=== PATIENT | male | born 1970 | race American Indian/Alaskan Native ===

== ENCOUNTER 2016-09-15 03:22 | Emergency (ER) | payer MEDICAID ==
[~2016-09-15] VITALS: Ht 193 cm; Wt 78.0 kg
[~2016-09-15 03:22] MED LIST: INSU100V8 SQ; LISI5TAB7 PO
[2016-09-15] MEDS ORDERED: KETOROLAC 30 MG/1 ML ONE (04:16)
[2016-09-15] MEDS ORDERED: ONDANSETRON ODT 4 MG ONE (04:16)
[2016-09-15] MEDS ORDERED: KETOROLAC 30 MG/1 ML IM ONE (04:30)
[2016-09-15] MEDS ORDERED: ONDANSETRON ODT 4 MG PO ONE (04:30)
[2016-09-15 04:58] LABS: PATH.CAST-FLAG NOT PRESENT; SPERM-FLAG NOT PRESENT; SRC-FLAG NOT PRESENT; XTAL-FLAG NOT PRESENT; YLC-FLAG NOT PRESENT
[2016-09-15 05:33] LABS: ASPARTATE AMINO TRANSFERASE 8 U/L (15-37); BLOOD UREA NITROGEN 8 mg/dL (7-18)
[2016-09-15 07:07] VITALS: BP 127/61
== END 2016-09-15 07:11 | disposition home or self-care (01) ==
LOC: ED 03:50
DX: N30.01 Acute cystitis with hematuria (principal); E10.65 Type 1 diabetes mellitus with hyperglycemia; Z91.14 Patient's other noncompliance with medication regimen; F10.20 Alcohol dependence, uncomplicated; I10 Essential (primary) hypertension
CPT/HCPCS: 36415; 74176; 80053; 81001; 83690; 85025; 96372; 99285; J1885; Q0162

== ENCOUNTER 2016-10-04 21:13 | Emergency (ER) | payer MEDICAID ==
[~2016-10-04] VITALS: Ht 182.9 cm; Wt 85.0 kg
[2016-10-04 22:09] LABS: PATH.CAST-FLAG NOT PRESENT; SPERM-FLAG NOT PRESENT; SRC-FLAG NOT PRESENT; XTAL-FLAG NOT PRESENT; YLC-FLAG NOT PRESENT
[2016-10-04 22:11] LABS: HEMATOCRIT 34.2 % (39.2-51.8); HEMOGLOBIN 11.2 g/dL (13.7-18.0); WHITE BLOOD COUNT 8.4 x10^3/uL (3.4-10)
[2016-10-04 22:24] LABS: ASPARTATE AMINO TRANSFERASE 11 U/L (15-37); BLOOD UREA NITROGEN 17 mg/dL (7-18)
[2016-10-04] MEDS ORDERED: CALCIUM CARBONATE 500 MG TABLET PO ONE (22:30)
[2016-10-04 23:01] VITALS: BP 132/74
== END 2016-10-04 23:20 | disposition home or self-care (01) ==
LOC: ED 21:28
DX: R31.29 Other microscopic hematuria (principal); E83.51 Hypocalcemia; E11.65 Type 2 diabetes mellitus with hyperglycemia; Z87.891 Personal history of nicotine dependence; Z59.0 Homelessness
CPT/HCPCS: 36415; 80053; 81001; 83690; 85025; 99284

== ENCOUNTER 2016-11-10 01:22 | Emergency (ER) | payer MEDICAID ==
[~2016-11-10] VITALS: Ht 193 cm; Wt 80.0 kg
[2016-11-10 01:31] VITALS: BP 145/81
== END 2016-11-10 03:43 | disposition home or self-care (01) ==
LOC: ED 02:55
DX: J02.8 Acute pharyngitis due to other specified organisms (principal); B34.9 Viral infection, unspecified; M79.671 Pain in right foot; E11.65 Type 2 diabetes mellitus with hyperglycemia; I10 Essential (primary) hypertension; F10.20 Alcohol dependence, uncomplicated
CPT/HCPCS: 71020; 99284

== ENCOUNTER 2018-06-04 00:30 | Emergency (ER) | payer MEDICAID ==
[~2018-06-04] VITALS: Ht 193 cm; Wt 80.0 kg
--- NOTE | 2018-06-04 00:42 | NUR ---
REVIEW PREVIOUS HX, PT HAS HX DIABETES, TO LOBBY FOR BLOOD SUGAR AND PT NOTES THAT HE HAS NOT BEEN TAKING INSULIN HE "RAN OUT", UNKNOWN WHEN
[2018-06-04 02:29] LABS: BASOPHILS # (AUTO) 0.05 x10^3/uL (0-0.1); BASOPHILS % (AUTO) 0 % (0-1); EOSINOPHILS # (AUTO) 0.13 x10^3/uL (0-0.4); EOSINOPHILS % (AUTO) 1 % (1-7); LYMPHOCYTES # (AUTO) 1.99 x10^3/uL (1-3.4); LYMPHOCYTES % (AUTO) 18 % (22-44); MD NO; MEAN CORPUSCULAR HEMOGLOBIN 26.4 pg (27.5-34.5); MEAN CORPUSCULAR HGB CONC 33.4 g/dL (33.2-36.2); MEAN CORPUSCULAR VOLUME 78.9 fL (81-97); MEAN PLATELET VOLUME 7.7 fL (7.4-10.4); MONOCYTES # (AUTO) 0.66 x10^3/uL (0.2-0.8); MONOCYTES % (AUTO) 6 % (2-9); NEUTROPHILS # (AUTO) 8.41 x10^3/uL (1.8-6.8); NEUTROPHILS % (AUTO) 75 % (42-75); PLATELET COUNT 294 x10^3/uL (130-400); RED BLOOD COUNT 5.33 x10^6/uL (4.38-5.82); RED CELL DISTRIBUTION WIDTH 17.5 % (9.4-14.8)
[2018-06-04 02:37] LABS: ANION GAP 4 mmol/L (5-15); CALCIUM 8.4 mg/dL (8.5-10.1); CHLORIDE 110 mmol/L (98-107); CREATININE 1.02 mg/dL (0.7-1.3)
[2018-06-04 02:42] VITALS: BP 148/86
--- NOTE | 2018-06-04 02:44 | NUR ---
FIRST CONTACT WITH PT. PT HERE STATING RLE PAIN FOR SEVERAL WEEKS. IN WHEELCHAIR LLE AMPUTATION. R FOOT AMPUTATION. HX OF MRSA, STUB APPEARS NORMAL, NO REDNESS OR DRAINAGE AT THIS TIME. ALSO STATES PAIN R CALF. PT'S AOX4. RESPS EVEN AND UNLABORED. BP/SPO2 MONITORS IN PLACE. CALL LIGHT WITHIN REACH.
--- NOTE | 2018-06-04 03:25 | NUR ---
PT GIVEN DC INSTRUCTIONS. PT'S AOX4. RESPS EVEN AND UNLABORED. PT WHEELED TO DC. NO ACUTE DISTRESS AT DC.
== END 2018-06-04 03:26 | disposition home or self-care (01) ==
LOC: ED 02:09
DX: M79.604 Pain in right leg (principal); E11.65 Type 2 diabetes mellitus with hyperglycemia; I10 Essential (primary) hypertension; F17.200 Nicotine dependence, unspecified, uncomplicated; Z72.9 Problem related to lifestyle, unspecified; Z75.9 Unspecified problem related to medical facilities and other health care; Z63.8 Other specified problems related to primary support group
CPT/HCPCS: 36415; 80048; 82040; 82962; 85025; 99284

== ENCOUNTER 2018-07-18 19:38 | Emergency (ER) | payer MEDICAID ==
[~2018-07-18] VITALS: Ht 193 cm; Wt 80.5 kg
[2018-07-18 20:33] LABS: BASOPHILS # (AUTO) 0.05 x10^3/uL (0-0.1); BASOPHILS % (AUTO) 1 % (0-1); EOSINOPHILS # (AUTO) 0.25 x10^3/uL (0-0.4); EOSINOPHILS % (AUTO) 3 % (1-7); LYMPHOCYTES # (AUTO) 1.66 x10^3/uL (1-3.4); LYMPHOCYTES % (AUTO) 19 % (22-44); MD NO; MEAN CORPUSCULAR HEMOGLOBIN 26.5 pg (27.5-34.5); MEAN CORPUSCULAR HGB CONC 32.6 g/dL (33.2-36.2); MEAN CORPUSCULAR VOLUME 81.3 fL (81-97); MEAN PLATELET VOLUME 8.1 fL (7.4-10.4); MONOCYTES # (AUTO) 0.61 x10^3/uL (0.2-0.8); MONOCYTES % (AUTO) 7 % (2-9); NEUTROPHILS # (AUTO) 6.31 x10^3/uL (1.8-6.8); NEUTROPHILS % (AUTO) 71 % (42-75); PLATELET COUNT 370 x10^3/uL (130-400); RED BLOOD COUNT 4.99 x10^6/uL (4.38-5.82); RED CELL DISTRIBUTION WIDTH 16.6 % (9.4-14.8)
[2018-07-18] MEDS ORDERED: FLUCONAZOLE 100 MG TABLET ONE (20:38)
--- NOTE | 2018-07-18 20:44 | NUR ---
PT MEDICATED PER APR FOR YEAST INFECTION OF SCROTUM. PT RESTING IN ROOM, NADN. CALL LIGHT WITHIN REACH. AWAITING LAB RESULTS AT [facility] TIME
[2018-07-18 20:46] LABS: ALBUMIN 2.7 g/dL (3.4-5.0); ANION GAP 9 mmol/L (5-15); CALCIUM 8.4 mg/dL (8.5-10.1); CHLORIDE 108 mmol/L (98-107)
--- NOTE | 2018-07-18 20:55 | NUR ---
ADDITIONAL ORDERS RECEIVED FOR CT. IV TO BE PLACED FOR TESTING
[2018-07-18] MEDS ORDERED: SODIUM CHLORIDE 0.9% 1,000ML IVBOLUS ONE (21:00)
[2018-07-18] MEDS ORDERED: FLUCONAZOLE 100 MG TABLET PO ONE (21:00)
[2018-07-18] MEDS ORDERED: SODIUM CHLORIDE FLUSH 10ML SYR IVF ONE (21:00)
--- NOTE | 2018-07-18 21:09 | NUR ---
PT TAKEN TO CT
[2018-07-18] MEDS ORDERED: OMNIPAQUE 350 MG/ML, 100ML BOTTLE ONE (21:22)
[2018-07-18 21:25] VITALS: BP 165/85
[2018-07-18] MEDS ORDERED: NYSTATIN TOPICAL POWDER 15GM TP SCH (22:00)
== END 2018-07-18 22:34 | disposition home or self-care (01) ==
LOC: ED 22:00
DX: B37.2 Candidiasis of skin and nail (principal); E11.9 Type 2 diabetes mellitus without complications; I10 Essential (primary) hypertension; Z72.9 Problem related to lifestyle, unspecified
CPT/HCPCS: 36415; 72193; 80048; 82040; 85025; 99284; J7030; Q9967